=== PATIENT | female | born 1985 | race Asian ===

== ENCOUNTER 2016-09-07 00:24 | Inpatient (IN) | payer SELFPAY ==
[~2016-09-07] VITALS: Ht 162.6 cm; Wt 74.8 kg
[2016-09-07] MEDS ORDERED: IRON65TA11 PO (01:09)
[2016-09-07] MEDS ORDERED: CALC500T2 PO (01:10)
[2016-09-07] MEDS ORDERED: VITA1TAB44 PO (01:11)
[2016-09-07] MEDS ORDERED: DOCO100C PO (01:12)
[2016-09-07] MEDS ORDERED: NALBUPHINE HYDROCHLORIDE 10 MG/ML VIAL IVP PRN (01:15)
[2016-09-07] MEDS ORDERED: OXYTOCIN 20 UNITS/LR PREMIX 1,000 ML IV PRN (01:15)
[2016-09-07] MEDS ORDERED: OXYTOCIN 10 UNITS/ML VIAL IM SCH (01:15)
[2016-09-07] MEDS ORDERED: PROMETHAZINE 25 MG/ML VIAL IVP PRN (01:15)
[2016-09-07 01:31] LABS: BASOPHILS # (AUTO) 0.1 K/uL (0.00-0.22); BASOPHILS % (AUTO) 0.8 % (0.0-2.0); EOSINOPHILS # (AUTO) 0.1 K/uL (0-0.4); EOSINOPHILS % (AUTO) 2.1 % (0.0-4.0); HEMATOCRIT 35.9 % (36-48); HEMOGLOBIN 11.8 g/dL (12.0-16.0); LYMPHOCYTES # (AUTO) 1.6 K/uL (2.5-16.5); LYMPHOCYTES % (AUTO) 22.6 % (20.5-51.1); MEAN CORPUSCULAR HEMOGLOBIN 32 pg (27-31); MEAN CORPUSCULAR HGB CONC 33 g/dL (33-37); MEAN CORPUSCULAR VOLUME 98 fL (80-94); MONOCYTES # (AUTO) 0.4 K/uL (0.8-1.0); MONOCYTES % (AUTO) 5.1 % (1.7-9.3); NEUTROPHILS # (AUTO) 4.8 K/uL (1.8-7.7); NEUTROPHILS % (AUTO) 69.4 % (42.2-75.2); PLATELET COUNT (AUTO) 244 K/uL (140-450); RED BLOOD CELL COUNT(AUTO) 3.67 MIL/uL (4.20-5.40); RED CELL DISTRIBUTION WIDTH 11.3 % (11.6-13.7)
[2016-09-07 01:45] LABS: APPEARANCE,URINE CLEAR (CLEAR); BILIRUBIN,URINE NEGATIVE (NEGATIVE); BLOOD, URINE TRACE-L (NEGATIVE); COLOR,URINE YELLOW (YELLOW); LEUKOCYTE ESTERASE ,URINE NEGATIVE (NEGATIVE); NITRITE, URINE NEGATIVE (NEGATIVE); PH,URINE 6.5 (5.0-9.0); PROTEIN,URINE NEGATIVE (NEGATIVE); UGLUCOSE NEGATIVE (NEGATIVE); UROBILINOGEN,URINE 0.2 EU/dL (0.2 - 1)
[2016-09-07] MEDS ORDERED: MISOPROSTOL 25 MCG TAB ONE ×3 (01:46→10:36)
[2016-09-07] MEDS: LACTATED RINGERS 1,000 ML IV SCH ×2 (02:00→08:58)
[2016-09-07 02:02] LABS: BACTERIA,URINE FEW /HPF (None Seen); MUCUS,URINE 4+ /LPF (None Seen); RBC,URINE 0-5 (RARE) /HPF (0-5); SQUAMOUS EPITHELIAL CELL,UR 0-3 (FEW) /LPF (0-3 (FEW)); WBC,URINE 0-5 (RARE) /HPF (0-5)
[2016-09-07] MEDS: MISOPROSTOL 25 MCG TAB VG PRN ×3 (03:02→10:34)
[2016-09-07 03:07] VITALS: BP 104/67
--- NOTE | 2016-09-07 10:39 | NUR ---
PATIENT HAS BEEN SCREENED AND CATEGORIZED LOW NUTRITION RISK. PATIENT WILL BE SEEN WITHIN 7 DAYS OF ADMISSION. 09/14/[address]
[2016-09-07] MEDS ORDERED: CITRIC ACID/SODIUM CITRATE 30 ML UDC PO SCH (15:27)
[2016-09-07] MEDS ORDERED: OXYTOCIN 10 UNITS/ML VIAL ONE (15:44)
[2016-09-07] MEDS ORDERED: TRIAMCINOLONE 40 MG/ML 5ML VIAL ONE (15:44)
[2016-09-07] MEDS ORDERED: CITRIC ACID/SODIUM CITRATE 30 ML UDC ONE (16:02)
[2016-09-07] MEDS ORDERED: ePHEDrine 50 MG/ML VIAL IV ONE (16:12)
[2016-09-07] MEDS ORDERED: BUPIVACAINE-MPF 0.75% 10 ML VIAL INJ ONE (16:12)
[2016-09-07] MEDS ORDERED: fentaNYL 0.05 MG/ML VIAL ONE (16:24)
[2016-09-07] MEDS ORDERED: MORPHINE PRES FREE 10 MG/10 ML AMP IV ONE (16:24)
[2016-09-07] MEDS ORDERED: ONDANSETRON 4 MG/2 ML VIAL IVP PRN ×2 (16:45)
[2016-09-07] MEDS ORDERED: METHYLERGONOVINE 0.2 MG/ML AMP ONE (16:45)
[2016-09-07] MEDS ORDERED: HYDROcodone/APAP 5/325 MG 1 TAB TAB PO PRN (16:45)
[2016-09-07] MEDS ORDERED: NALOXONE 0.4 MG/ML VIAL IVP PRN ×3 (16:45)
[2016-09-07] MEDS ORDERED: TEMAZEPAM 15 MG CAP PO PRN (16:45)
[2016-09-07] MEDS ORDERED: MEASLES, MUMPS, AND RUBELLA 1 VIAL SQVAC PRN (16:45)
[2016-09-07] MEDS ORDERED: oxyCODONE/APAP 5/325 MG 1 TAB TAB PO PRN (16:45)
[2016-09-07] MEDS ORDERED: NALBUPHINE 10 MG/ML AMP IVP PRN (16:45)
[2016-09-07] MEDS ORDERED: METHYLERGONOVINE 0.2 MG/ML AMP IM PRN (16:45)
[2016-09-07] MEDS ORDERED: KETOROLAC 60 MG/2 ML VIAL IM PRN (16:45)
[2016-09-07] MEDS ORDERED: IBUPROFEN 800 MG TAB PO PRN (16:45)
[2016-09-07] MEDS ORDERED: TRIMETHOBENZAMIDE 200 MG/2 ML SYR IM PRN (16:45)
[2016-09-07] MEDS ORDERED: diphenhydrAMINE 50 MG/ML VIAL IVP PRN (16:45)
[2016-09-07] MEDS ORDERED: OXYTOCIN 20 UNITS/LR PREMIX 1,000 ML IV ONE (17:37)
[2016-09-07] MEDS: OXYTOCIN 20 UNITS/LR PREMIX 1,000 ML IV SCH (20:11)
[2016-09-07] MEDS ORDERED: DOCUSATE SOD/SENNA 50/8.6 MG 1 TAB PO SCH (21:00)
[2016-09-07] MEDS ORDERED: KETOROLAC 30 MG/ML VIAL IVP PRN (21:20)
[2016-09-08] MEDS: OXYTOCIN 20 UNITS/LR PREMIX 1,000 ML IV SCH ×2 (03:55→12:38)
[2016-09-08 06:02] LABS: HEMATOCRIT 32.1 % (36-48); HEMOGLOBIN 10.8 g/dL (12.0-16.0); MEAN CORPUSCULAR HEMOGLOBIN 32 pg (27-31); MEAN CORPUSCULAR HGB CONC 34 g/dL (33-37); MEAN CORPUSCULAR VOLUME 97 fL (80-94); PLATELET COUNT (AUTO) 209 K/uL (140-450); RED BLOOD CELL COUNT(AUTO) 3.32 MIL/uL (4.20-5.40); RED CELL DISTRIBUTION WIDTH 11.2 % (11.6-13.7); WHITE BLOOD COUNT (AUTO) 11.8 K/uL (4.8-10.8)
[2016-09-08 06:37] LABS: BAND % (MANUAL) 8 % (0-8); LYMPHOCYTES % (MANUAL) 7 % (20-46); MONOCYTES % (MANUAL) 4 % (5-12); NEUTROPHILS % (MANUAL) 81 (43-65)
[2016-09-08] MEDS: SIMETHICONE 80 MG TAB.CHEW PO PRN ×2 (08:45→12:39)
== END 2016-09-09 17:00 | disposition home or self-care (01) | DRG 766 ==
LOC: MLD 00:24 → MFCC 16:49
PROVIDERS: ADMIT Obstetrics & Gynecology; ATTEND Obstetrics & Gynecology
PROC: 0U7C7ZZ Dilation of Cervix, Via Natural or Artificial Opening (ICD-10-PCS; 2016-09-07)
PROC: 10D00Z1 Extraction of Products of Conception, Low, Open Approach (ICD-10-PCS; principal; 2016-09-07 16:15)
DX: O33.9 Maternal care for disproportion, unspecified (principal); O32.4XX0 Maternal care for high head at term, not applicable or unspecified; O69.81X0 Labor and delivery complicated by cord around neck, without compression, not applicable or unspecified; O61.1 Failed instrumental induction of labor; Z37.0 Single live birth; Z82.49 Family history of ischemic heart disease and other diseases of the circulatory system; Z3A.39 39 weeks gestation of pregnancy; Z28.21 Immunization not carried out because of patient refusal
CPT/HCPCS: 36415; 59200; 81001; 85025; 86592; 86886; 86900; 86901; J0690; J1885; J2210; J2270; J2590; J3010; J3301; J3490; J7060; J7120